=== PATIENT | male | born 1935 | race Caucasian/White ===

== ENCOUNTER 2017-02-28 08:35 | Day surgery (SDC) | payer MEDICARE ==
[2017-02-28] VITALS (8 sets, daily range): BP systolic 130–152; BP diastolic 70–81; PULSE 57–69; RESP 13–18; O2SAT 94–98
[~2017-02-28] VITALS: Ht 177.8 cm; Wt 118.2 kg
--- NOTE | 2017-02-28 07:07 | PCM.HPANE ---
Patient Data Surgeon Admitting Provider: Attending Provider:Moises Chirinos MD Primary Care Physician:Rambo Kendall MD Other Provider:Stephanie Cruzingham Anesthesia Reason for Visit Ventral Incisional Hernia, Lipoma Of Torso Ht/WT & BMI Height (Feet): 5 Height (Inches): 10 Weight (Kilograms): 117.93 Body Mass Index 37.00 Allergies Coded Allergies: lisinopril (Verified Allergy, Unknown, rash, 02/26/17) tadalafil (Verified Allergy, Unknown, back pain, 02/26/17) Past Anesthesia History Anesthesia History: Denies:: Abnormal Airway, Anesthesia Reactions, Difficult Intubation, Fam Anesthesia Reaction, Fam Malignant Hypertherm, Malignant Hyperthermia Diabetes History Hx Diabetes?: No (hgb A1C 11/2016- 6.3) MRSA MRSA: No Medications Hypertension Medication: No (past hx of use) Home Meds Incl Beta Olivia: No Reported Medications Glucosamine/MSM/Chondroitin A (Glucosamine Chondroit MSM Tab)1 Each Tablet1 Each PO DAILY 02/26/17 Aspirin 81 Mg [id number] Mg PO DAILY Ref 0 02/26/17 History History of ENT Problems?: No HEENT History: Positive for:: Hearing Problem Denies:: Abnormal Airway Cataracts Difficult Intubation Dysphagia Glaucoma Sinus Problem TMJ Denture Type: Partial- Upper Teeth Condition: Within Normal Limits Hx of Heart Problems?: No Cardiovascular History: Denies:: AICD Abdominal Aortic Aneurism Atrial Fibrillation Edema Heart Murmur Hypertension (on no meds) Irregular Heartbeat Pacemaker Peripheral Vascular Hx of Respiratory Problem?: No Respiratory History: Denies:: Asthma COPD Emphysema Oxygen Administration Pneumonia Tuberculosis Use of C-PAP Machine Use of Inhalers / NEBS Hx Neurologic Problems?: No Neurological History: Denies:: CVA Dementia Headaches Multiple Sclerosis Parkinson's Disease Seizures TIA Hx of GI Problems?: Yes Other GI Pertinent History: ventral hernia, suprapubic mass Hx of Problems?: No Genitourinary History: Denies:: Kidney Stones Urinary Tract Infection Male Hx: Positive for:: Prostate Problems (enlarged- being monitored) Denies:: Scrotal Mass Testicular Surgery Skin History: Denies:: History Skin Disorders? Pressure Ulcers Hx Musculoskeletal Problems?: Yes Musculoskeletal History: Positive for:: Osteoarthritis Denies:: Back Injury Fibromyalgia Joint Replacement Musculoskeletal Trauma (hip occasionally problematic) Myasthenia Gravis Systemic Lupus Hx of Psycho/Social Problems?: No Psycho Social History: Denies:: Anxiety Hx Depression Hx Surgeries?: Yes (gallbladder,tonsillectomy) Hx Any Other Health Problems?: Yes Other History: Denies:: Cancer Thyroid Disease History Blood Transfusions: Positive for:: Accept Blood Products? Denies:: Blood Transfusions Hx Diabetes: No (hgb A1C 11/2016- 6.3) Hx Alcohol Use: YesAlcoholic Drinks Per Day: 3-4 drinks weeklyHx Substance Use : NoHave You Smoked inLast 12 mo: No Stop/Bang S-Snoring: Do You Snore Loudly: No T-Tired: feel tired, fatigued: Yes O-Obsered: Observed not breath: No P-Blood Pressure: treated: No B- Body Mass Index > 35 kg/m2: Yes A- Age over 50: Yes N- Neck Large Circumference: No G- Gender Male: Yes HYUN Total Score: 4 Risk Assessment Category Category 1A: Patient has history of documented sleep apnea, and HAS NOT received any narcotic, sedative or anesthesia administration during this stay. Category 1B: Patient has history of documented sleep apnea, and HAS received any narcotic , sedative or anesthesia administration during this stay Category 2: Patient has SUSPECTED Obstructive Sleep Apnea, and HAS received any narcotic , sedative or anesthesia administration during this stay. Category 3: Patient has SUSPECTED Obstructive Sleep Apnea and HAS NOT received narcotic, sedative or anesthesia administration during this stay. Category 4: Outpatient in Procedural Areas with known sleep apnea or who screen positive for High Risk via the STOP/BANG questionnaire. Exam Exam General Appearance: Alert, Oriented X3, Cooperative, No Acute Distress HEENT/AIRWAY: MP 2, Neck Movement (from, thick,), Mouth Opening (wnl) Lungs: Clear to Auscultation Heart: Exam Unremarkable Plan Impression Patient chart reviewed, patient interviewed and anesthestic plan with risks, benefits, and alternatives discussed, and informed consent obtained. ASA Physical Status: ASA2 Mod Systemic Disease Anesthetic Plan: GA Bene/Risks/Altern/Consents: Yes HP Complete Prior to Induction: Yes Josue Pemberton MD February 28, 2017 07:07
[~2017-02-28 08:35] MED LIST: ASPI-973 PO; CeFAZolin Inj 2 GM in IV Premix 1 EACH IV SCH; GLUC-180 PO
[2017-02-28] MEDS ORDERED: EPHEDrine/NS 5 mg/mL 5 mL Syringe ONE (08:36)
[2017-02-28] MEDS ORDERED: fentaNYL-PF 50 mCg/mL 2 mL Inj ONE (08:36)
[2017-02-28] MEDS ORDERED: Ondansetron 2 mg/mL 2 mL Inj ONE (08:36)
[2017-02-28] MEDS ORDERED: Propofol 10,000 mCg/mL 20 mL Inj ONE (08:36)
[2017-02-28] MEDS: Lactated Ringer's 1,000 ML IV SCH ×2 (09:50→10:36)
[2017-02-28] MEDS ORDERED: Lactated Ringer's 1,000 ML IV SCH (10:44)
[2017-02-28] MEDS ORDERED: Lactated Ringer's 500 ML IV PRN (10:44)
[2017-02-28] MEDS ORDERED: Ondansetron 2 mg/mL 2 mL Inj IVPUSH PRN (10:45)
[2017-02-28] MEDS ORDERED: Labetalol 5 mg/mL 4 mL Inj IV PRN (10:45)
[2017-02-28] MEDS ORDERED: Dexamethasone 4 mg/mL Inj IVPUSH PRN (10:45)
[2017-02-28] MEDS ORDERED: EPHEDrine Sulfate 50 mg/mL Inj IVPUSH PRN (10:45)
[2017-02-28] MEDS ORDERED: hydrALAZINE 20 mg/mL Inj IVPUSH PRN (10:45)
[2017-02-28] MEDS ORDERED: Atropine 0.4 mg/mL Inj IVPUSH PRN (10:45)
[2017-02-28] MEDS ORDERED: HYDROmorphone 1 mg/mL Inj IVPUSH PRN (10:45)
[2017-02-28] MEDS ORDERED: Phenylephrine 10,000 mCg/mL Inj IVPUSH PRN (10:45)
[2017-02-28] MEDS ORDERED: Bupivacaine-MPF 0.5% 30 mL Inj INFILTRATE ONE (11:07)
[2017-02-28] MEDS: fentaNYL-PF 50 mCg/mL 2 mL Inj IVPUSH PRN ×2 (12:10→12:15)
--- NOTE | 2017-02-28 12:45 | PCM.ANEP1 ---
Post Anesthesia Phase 1 PACU Phase 1 Assessment Vital Signs Vital Signs Date Time Temp Pulse Resp B/P Pulse Ox O2 Delivery O2 Flow Rate FiO2 02/28/17 12:41 57 16 145/81 94 Room Air 02/28/17 12:20 66 17 130/78 95 Room Air 02/28/17 12:05 69 13 138/70 94 Room Air 02/28/17 12:00 63 15 140/76 95 Simple Mask 10 02/28/17 11:55 66 18 139/74 98 Simple Mask 10 02/28/17 11:50 36.5 65 15 152/73 98 Simple Mask 10 02/28/17 09:49 36.1 62 16 150/78 95 Room Air Anesthetic Administered: GA Level of Alertness: Awake, talking PAREDES's with Equal Strength: Yes Pain: No Nausea or Vomiting: No Oxygen Delivery: Room Air Lungs: Clear to Auscultation, Normal Air Movement Complications: No Follow up Care: No Josue Pemberton MD February 28, 2017 12:45
[2017-02-28] MEDS: oxyCODONE-Acetamin 5-325 mg Tablet PO PRN ×2 (12:52→13:28)
--- NOTE | 2017-02-28 13:54 | OP ---
[address] [address] OPERATIVE REPORT PATIENT: LANCE ROMERO : 1935 MR#: [id number] ADMIT: 02/28/2017 JOB ID: [id number] DATE OF SURGERY: 02/28/2017 ANESTHESIA: General. PREOPERATIVE DIAGNOSIS(ES): 1. Umbilical hernia. 2. Suprapubic lipoma. POSTOPERATIVE DIAGNOSIS(ES): 1. Incarcerated umbilical hernia (containing incarcerated fat). 2. A 9 x 5.5 x 2 cm lipoma in the suprapubic region. OPERATIONS: 1. Open repair of incarcerated umbilical hernia with mesh. 2. Excision of abdominal wall lipoma. SURGEON: Moises Chirinos MD. ADMISSIONS EVALUATOR: Willard Stacy PA-C (the phlebotomy lab assistant was required for the safe and timely completion of the case). COMPLICATIONS: None. ESTIMATED BLOOD LOSS: Less than 5 mL. CONDITION: Satisfactory. SPECIMEN: Suprapubic lipoma. FINDINGS: There was an approximately 2.5 cm fascial defect. This was repaired with a 6.4 cm Ventralex patch in an underlay fashion. A 9 x 5.5 x 2 cm lipomatous mass was removed from the suprapubic region. INDICATIONS/SIGNIFICANT HISTORY: The patient is an 81-year-old man who underwent a laparoscopic cholecystectomy about six years ago. He subsequently developed a small lump in proximity to the umbilical incision. He was diagnosed with a hernia and made the decision for observation. However, it has recently become increasingly large. He is unable to reduce it. He had a friend who from a hernia and therefore, wanted it repaired. He also has had a lump just under where his belt buckle goes for many years and requested that this be removed. OPERATIVE TECHNIQUE: The patient was taken to the operating room and placed in supine position. General anesthesia was administered. Preoperative antibiotics were given. The abdomen was prepped and draped in a standard surgical fashion. A procedure pause was performed. I injected a local anesthetic in the skin around the umbilicus, as well as overlying the lipoma in the suprapubic region. I began with a small transverse incision over the lipoma. The lipoma was relatively easily shelled out. It was actually quite a lot bigger than anticipated. I freed it up from the surrounding tissue with electrocautery. This was completely removed and handed off. I then made an infraumbilical incision. Dissection was carried down through skin and subcutaneous tissue. The umbilical stalk was circumferentially dissected free and then opened and transected. There was a moderate amount of incarcerated fat in this. I tried to reduce it but was unable to. I therefore excised using electrocautery. The fascial defect was then cleared anteriorly and posteriorly. A Ventralex patch was inserted in an underlay fashion, secured in place using 4-0 Prolene sutures in a clockwise fashion. The fascia was then closed over with another 0 Prolene with a horizontal mattress. The umbilicus was tacked down using a 3-0 PDS suture. Skin was closed using 3-0 Vicryl deep dermals, followed by a running 4-0 Monocryl. The lipoma excision site was closed in a similar fashion. The entire procedure was well tolerated without complication. LUIS
--- NOTE | 2017-03-01 16:10 | PATH ---
SURGICAL PATHOLOGY Attending Physician:Moises Chirinos MD CASE STATUS: Signed Out PATIENT NAME: LANCE ROMERO PID: [id number] : 1935 DATE COLLECTED:02/28/2017 21:44 SPECIMEN: Soft Tissue, Lipoma CLINICAL HISTORY: LIPOMA OF TORSO 1). PUBIC LIPOMA 9CM X 5.5CM X 2CM FINAL DIAGNOSIS: 1.PUBIC MASS: LIPOMA. NO EVIDENCE OF MALIGNANCY. ICD10 CODE D17.1 GROSS DESCRIPTION: The specimen is received in one formalin filled container labeled with the patient's name, sublabeled "pubic lipoma" and consists of an 8.0 x 5.3 x 3.0 CM portion of yellow-vizcaino soft tissue. 2 representative personal service sections are submitted in 2 cassettes. 02/28/2017 DAC MICRO DESCRIPTION: See diagnosis. ICD-9 CODES: CPT CODES: 1: 10706 Electronically Signed Out Jennifer Bucio MD [facility] Pathology [facility] [address], [place] [address] Technical component performed at [facility], [facility] [address], [place], [address]
== END 2017-02-28 23:59 | disposition home or self-care (01) ==
LOC: SAS 08:35
PROVIDERS: ATTEND General Practice
DX: K42.0 Umbilical hernia with obstruction, without gangrene (principal); D17.1 Benign lipomatous neoplasm of skin and subcutaneous tissue of trunk; I10 Essential (primary) hypertension; I45.10 Unspecified right bundle-branch block; R73.03 Prediabetes; M19.90 Unspecified osteoarthritis, unspecified site; E66.9 Obesity, unspecified; Z87.891 Personal history of nicotine dependence; Z86.010 Personal history of colon polyps; Z68.37 Body mass index [BMI] 37.0-37.9, adult
CPT/HCPCS: 11406; 49587; C1781; J0690; J2405; J3010; J7120